=== PATIENT | male | born 1945 | race Caucasian/White ===

== ENCOUNTER → 2017-03-16 | Outpatient (CLI) | payer OTHER ==
[~2017-03-16] MED LIST: ASPIR-TRIN325 MG PO; ASPIRIN325 M1 PO; COLACE PO; FLEXERIL10 MG PO; LIPITOR40 MG PO; LISINOPRIL10 MG PO; METFORMIN HCL500 M1 PO; TETRACAINE HCL OD; VICODIN PO; ZOCOR PO
--- NOTE | ~2017-03-16 | EKG ---
PATIENT: ДМИТРИЙ EMMANUEL UNIT #: [id number] Ventricular Rate: 60 BPM Atrial Rate: 70 BPM P-R Interval: 152 ms QRS Duration: 94 ms Q-T Interval: 438 ms QTC Calculation(Bezet): 438 ms P [place]: 26 degrees Calculated R [place]: 54 degrees Calculated T [place]: 54 degrees Diagnosis Line: Sinus rhythm with marked sinus arrhythmia Diagnosis Line: Otherwise normal ECG Diagnosis Line: No previous ECGs available Diagnosis Line: Confirmed by GONZALO DIALLO MD ([id number]) on Diagnosis Line: 03/17/2017 2:54:23 PM INTERPRETING MD: [email or web address]
[2017-03-16 10:06] LABS: BASOPHIL# 0.1 X10e3 (0-0.3); BASOPHIL% 1.4 % (0-2.5); EOSINOPHIL# 0.3 X10e3 (0-0.7); EOSINOPHIL% 4.5 % (0.0-7.0); HEMATOCRIT 46.9 % (38.0-50.0); HEMOGLOBIN 15.7 gm/dL (13.0-16.0); LYMPHOCYTE# 1.2 X10e3 (1.0-3.5); LYMPHOCYTE% 20.2 % (17.0-45.0); MEAN CORPUSCULAR HEMOGLOBIN 31.5 PG (28-34); MEAN CORPUSCULAR HGB CONC 33.5 g/dL (30-36); MEAN PLATELET VOLUME 8.6 FL (6.5-11.5); MONOCYTE# 0.5 X10e3 (0-1.0); MONOCYTE% 7.8 % (3.0-12.0); NEUTROPHIL# 3.9 X10e3 (1.5-7.1); NEUTROPHIL% 66.1 % (40-75); PLATELET COUNT 213 X10e3 (140-420); RED BLOOD COUNT 4.99 X10e (3.90-5.60); RED CELL DISTRIBUTION WIDTH 13.4 % (11.0-15.5); WHITE BLOOD COUNT 5.9 X10e3 (4.0-10.5)
[2017-03-16 10:08] LABS: DIFF IND NO
[2017-03-16 10:32] LABS: BUN/CREATININE RATIO 12.72; CALCIUM SERUM 8.9 mg/dL (8.4-10.2); CREATININE SERUM 1.1 mg/dL (0.6-1.4); GLOM FILT RATE Estimated 67.7 mL/min (>60); POTASSIUM 4.5 mmol/L (3.5-5.1)
== END | disposition home or self-care (01) ==
LOC: CLAB 09:43
PROVIDERS: Urology
DX: C61 Malignant neoplasm of prostate (principal); K40.90 Unilateral inguinal hernia, without obstruction or gangrene, not specified as recurrent; I49.9 Cardiac arrhythmia, unspecified
CPT/HCPCS: 36415; 80048; 85025; 93005